=== PATIENT | female | born 1945 | race Caucasian/White ===

== ENCOUNTER 2016-10-13 06:44 | Emergency (ER) | payer MEDICARE ==
[~2016-10-13] VITALS: Ht 160 cm; Wt 60.0 kg
[2016-10-13] VITALS (7 sets, daily range): BP systolic 141–161; BP diastolic 77–86; PULSE 68–88; RESP 14–16; TEMP 97.9; O2SAT 96–98
[2016-10-13] MEDS ORDERED: PREV15CA15 PO (07:05)
[2016-10-13] MEDS ORDERED: CHLO7.5 PO (07:05)
[2016-10-13] MEDS ORDERED: VERA360C PO (07:05)
--- NOTE | 2016-10-13 07:05 | PD ---
HPI Chief Complaint: Cardiac Complaint Time Seen by Provider: 07:05 Travel History International Travel<30 days: No Contact w/Intl Traveler<30days: No Traveled to known affect area: No History of Present Illness HPI 71-year-old female came to the emergency room with history of heart palpitations that has been on and off with the patient for many years. However patient started noticing more frequent over past 2 weeks. Also she says that once they come they stay longer and make her anxious. It started again this morning and this time she did not want to ignore and came to the emergency room with her friend. No history of chest pain, lightheadedness, dizziness, syncopal episode or diaphoresis associated with the palpitations. Currently patient says they're gone and on the monitor he did not see anything. Patient says that she was evaluated by a promotional demonstrator 10 years ago in [place] and was told that these were PVCs. She had a stress test and echocardiogram then which was within normal limits. She has history of hypertension and anxiety and takes medications for those. Vital signs were stable. [facility] Past Medical History Narrative Medical List of her past medical history is reviewed from the nursing note. Anxiety: Yes Diminished Hearing: No Tetanus Vaccination: Unknown Influenza Vaccination: No Past Surgical History Cholecystectomy: Yes Eye Surgery: Yes (BILCATARCT) Social History Alcohol Use: No Tobacco Use: No Substance Use: No Allergies-Medications (Allergen,Severity, Reaction): Coded Allergies: No Known Allergies (Unverified , 10/13/16) Comments No known drug allergies. Reported Meds & Prescriptions Reported Meds & Active Scripts Active Lopressor (Metoprolol Tartrate) 50 Mg Tab 25 Mg PO BID Reported Vitamin C (Ascorbic Acid) 1,000 Mg Tab 1,200 Mg PO Tranxene T (Clorazepate Dipotassium) 7.5 Mg Tab 7.5 Mg PO BID PRN Prevacid (Lansoprazole) 15 Mg Capdr 15 Mg PO DAILY Verapamil SR (Verapamil HCl) 360 Mg Cap 360 Mg PO DAILY Narrative Medication List of her home medications reviewed from the nursing note. Review of Systems Except as stated in HPI: all other systems reviewed are Neg Physical Exam Narrative GENERAL: Awake, alert, elderly, anxious, no obvious distress SKIN: Warm and dry. HEAD: Atraumatic. Normocephalic. EYES: Pupils equal and round. No scleral icterus. No injection or drainage. ENT: No nasal bleeding or discharge. Mucous membranes pink and moist. NECK: Trachea midline. No JVD. CARDIOVASCULAR: Regular rate and rhythm. No murmur appreciated. RESPIRATORY: No accessory muscle use. Clear to auscultation. Breath sounds equal bilaterally. GASTROINTESTINAL: Abdomen soft, non-tender, nondistended. Hepatic and splenic margins not palpable. MUSCULOSKELETAL: No obvious deformities. No clubbing. No cyanosis. No edema. NEUROLOGICAL: Awake and alert. No obvious cranial nerve deficits. Motor grossly within normal limits. Normal speech. PSYCHIATRIC: Appropriate mood and affect; insight and judgment normal. Data Data Last Documented VS Vital Signs Date Time Temp Pulse Resp B/P Pulse Ox O2 Delivery O2 Flow Rate FiO2 10/13/16 09:27 72 14 98 Room Air 10/13/16 09:00 147/84 10/13/16 07:24 2 10/13/16 06:45 97.9 Orders Electrocardiogram (10/13/16 ) Basic Metabolic Panel (Bmp) (10/13/16 07:14) Ckmb (Isoenzyme) Profile (10/13/16 07:14) Complete Blood Count With Diff (10/13/16 07:14) Magnesium (Mg) (10/13/16 07:14) Prothrombin Time / Inr (Pt) (10/13/16 07:14) Act Partial Throm Time (Ptt) (10/13/16 07:14) Troponin I (10/13/16 07:14) Chest, Single Ap (10/13/16 07:14) Ecg Monitoring (10/13/16 07:14) Bilateral Bp Monitoring (10/13/16 07:14) Iv Access Insert/Monitor (10/13/16 07:14) Oximetry (10/13/16 07:14) Oxygen Administration (10/13/16 07:14) Sodium Chloride 0.9% Flush (Ns Flush) (10/13/16 07:15) Thyroid Stimulating Hormone (10/13/16 08:04) Metoprolol Tartrate (Lopressor) (10/13/16 08:45) Labs Laboratory Tests Test 10/13/16 07:15 White Blood Count 5.1 TH/MM3 Red Blood Count 4.61 MIL/MM3 Hemoglobin 13.9 GM/DL Hematocrit 40.7 % Mean Corpuscular Volume 88.3 FL Mean Corpuscular Hemoglobin 30.1 PG Mean Corpuscular Hemoglobin 34.0 % Concent Red Cell Distribution Width 13.4 % Platelet Count 212 TH/MM3 Mean Platelet Volume 7.5 FL Neutrophils (%) (Auto) 54.0 % Lymphocytes (%) (Auto) 30.4 % Monocytes (%) (Auto) 9.3 % Eosinophils (%) (Auto) 5.6 % Basophils (%) (Auto) 0.7 % Neutrophils # (Auto) 2.8 TH/MM3 Lymphocytes # (Auto) 1.5 TH/MM3 Monocytes # (Auto) 0.5 TH/MM3 Eosinophils # (Auto) 0.3 TH/MM3 Basophils # (Auto) 0.0 TH/MM3 CBC Comment DIFF FINAL Differential Comment Prothrombin Time 11.4 SEC Prothromb Time International 1.0 RATIO Ratio Activated Partial 28.2 SEC Thromboplast Time Sodium Level 135 MEQ/L Potassium Level 3.9 MEQ/L Chloride Level 101 MEQ/L Carbon Dioxide Level 28.0 MEQ/L Anion Gap 6 MEQ/L Blood Urea Nitrogen 9 MG/DL Creatinine 0.80 MG/DL Estimat Glomerular Filtration 70 ML/MIN Rate Random Glucose 98 MG/DL Calcium Level 9.3 MG/DL Magnesium Level 2.2 MG/DL Total Creatine Kinase 86 U/L Troponin I LESS THAN 0.02 NG/ML Thyroid Stimulating Hormone 2.420 uIU/ML 3rd [facility] Medical Decision Making Medical Screen Exam Complete: Yes Emergency Medical Condition: Yes Medical Record Reviewed: Yes Interpretation(s) 12-lead EKG was reviewed by me. Normal sinus rhythm, normal axis, nonspecific ST-T wave changes. Heart rate of 77 bpm. Differential Diagnosis Electrolyte abnormalities, thyroid hormone imbalance, ACS, palpitations NOS, PVCs, arrhythmias Narrative Course 7:29 AM awaiting for the blood test results to come back. I discussed with the patient regarding the reason to check her electrolytes and TSH. However if they are all within normal limits I explained to her that I plan to discharge her home. In my opinion patient should be switched from her verapamil SR to a beta angie like Lopressor which would work better with her PVCs and also hypertension. However patient has been on verapamil for 20 years now. I would make that recommendation on my discharge instructions and have her primary care due to change if he thinks it's necessary. Also patient does not have a promotional demonstrator in [facility] which is her current town of residence and I have let her know that her primary care should make a referral to a promotional demonstrator locally. Currently she will be on a monitor so that if there are any arrhythmia that can be caught. 8:01 AM the chest x-ray was read by the radiologist as a calcified granulomatous mass and recommended a CT scan which has been ordered. Otherwise all the blood test results so far are within normal limits. 8:33 AM all the blood test results are within normal limits. I discussed with the patient about the calcified mass and she said that she knows about it. 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 I have let her know about this CAT scan that is coming up. Awaiting for the CT to be done and resulted. Patient says that she had got up to go to the restroom and she felt the palpitations come back again. So I will give her a dose of Lopressor 12.5 mg here. 8:46 AM I changed my mind and cancelled the CT of the thorax since patient already has this known calcified mass. I asked her to get the CT as an outpatient done by her primary care and she is comfortable with that plan. She will be discharged home since all her blood test results of back and within normal limit. Procedures EKG Prior to Arrival: Yes Diagnosis Primary Impression: Palpitations Additional Impressions: calcified lung mass PVC (premature ventricular contraction) Referrals: Primary Care Physician 2 days Additional Instructions: Please follow-up with your primary care. Take the medication as per the prescription direction. However if you start noticing any significant side effects of the medication like lightheadedness, diaphoresis, weakness then stopped taking the medication and just follow-up with your primary care. Discussed with your primary care regarding stopping the verapamil and switching to a beta angie since that will control your palpitations/PVCs better. Please ask your primary care to refer you to a promotional demonstrator from the local area. Also please have your primary care or an outpatient CAT scan of her chest to follow-up on this calcified lung mass. Please stop taking your verapamil while on this medication. Med/Other Pt SpecificInfo: Prescription(s) given, Med Stopped (verapamil should be stopped) Scripts Metoprolol Tartrate (Lopressor)50 Mg Tab25 Mg PO BID #30 TAB Ref 0 Prov:Abimael,Shravanti R. MD 10/13/16 Lawanda Varghese MD Oct 13, 2016 07:05
[2016-10-13] MEDS ORDERED: VITA10007 PO (07:06)
[2016-10-13] MEDS ORDERED: SODIUM CHLORIDE 0.9% FLUSH 5 ML FLUSH IVF PRN (07:15)
[2016-10-13 07:30] LABS: AUTOMATED NEUTROPHIL # 2.8 TH/MM3 (1.8-7.7); BASOPHIL % 0.7 % (0.0-2.0); EOSINOPHIL # 0.3 TH/MM3 (0-0.4); EOSINOPHIL % 5.6 % (0.0-4.0); HEMATOCRIT 40.7 % (35.0-46.0); HEMO FLAGS DIFF FINAL; LYMPH % 30.4 % (9.0-44.0); LYMPHOCYTE # 1.5 TH/MM3 (1.0-4.8); MEAN CELL VOLUME 88.3 FL (80.0-100.0); MEAN CORPUSCULAR HEMOGLOBIN 30.1 PG (27.0-34.0); MONO % 9.3 % (0.0-8.0); PLATELET COUNT 212 TH/MM3 (150-450); RED BLOOD COUNT 4.61 MIL/MM3 (4.00-5.30); RED CELL DISTRIBUTION WIDTH 13.4 % (11.6-17.2); WHITE BLOOD COUNT 5.1 TH/MM3 (4.0-11.0)
--- NOTE | 2016-10-13 07:34 | RADRPT ---
EXAM DATE/TIME: 10/13/2016 07:23 [place] COMPARISON: No previous studies available for comparison. INDICATIONS : Palpitations. MEDICAL HISTORY : None. SURGICAL HISTORY : None. ENCOUNTER: Initial ACUITY: 1 week PAIN SCORE: 0/10 LOCATION: Bilateral chest FINDINGS: The lung blanco are hyperaerated bilaterally. Several calcified granulomas are noted in the right jacqueline g. Otherwise, no focal or acute pulmonary infiltrates are demonstrated. There are no pleural effusion s or pulmonary edema. The heart size is within normal limits. There is a focal well-defined prominent right paratracheal mass measuring 4 cm x 1.8 cm. This mass appears to be partially calcified. There is an old displaced fracture of the right clavicle. Otherwise the bony structures are grossly intact. CONCLUSION: 1. No acute intrathoracic disease. 2. Evidence of previous granulomatous disease. 3. Well-defined partially calcified right paratracheal mass most likely related to patient's previous granulomatous disease. However, I would recommend a noncontrast CT thorax on a non-emergent outpatie nt basis for complete evaluation. Robert Schaefer MD on October 13, 2016 at 7:31 Board Certified Radiologist. This report was verified electronically.
[2016-10-13 07:43] LABS: APTT (PATIENT) 28.2 SEC (24.3-30.1); PROTHROMBIN TIME - PATIENT 11.4 SEC (9.8-11.6)
[2016-10-13 07:52] LABS: ANION GAP 6 MEQ/L (5-15); BLOOD UREA NITROGEN 9 MG/DL (7-18); CHLORIDE 101 MEQ/L (98-107); GLOMERULAR FILTRATION RATE 70 ML/MIN (>89); MAGNESIUM 2.2 MG/DL (1.5-2.5); POTASSIUM 3.9 MEQ/L (3.5-5.1); SODIUM (NA) 135 MEQ/L (136-145)
[2016-10-13 08:07] LABS: CREATINE KINASE 86 U/L (26-192)
[2016-10-13] MEDS ORDERED: METOPROLOL TARTRATE 25 MG TAB PO ONE (08:45)
[2016-10-13] MEDS ORDERED: METO-309 PO (08:50)
--- NOTE | 2016-10-13 12:25 | EKG ---
Date Performed: 10/13/2016 Time Performed: 07:04:03 PTAGE: 71 years EKG: Sinus rhythm NONSPECIFIC T-WAVE ABNORMALITY BORDERLINE ECG NO PREVIOUS TRACING DOCTOR: Drew Lea Interpretating Date/Time 10/13/2016 12:24:05
== END 2016-10-13 09:39 | disposition home or self-care (01) ==
LOC: NEPC 06:44
DX: R00.2 Palpitations (principal); R91.8 Other nonspecific abnormal finding of lung field; I49.3 Ventricular premature depolarization
CPT/HCPCS: 71010; 80048; 82550; 83735; 84443; 84484; 85025; 85610; 85730; 93005